=== PATIENT | male | born 1945 | race Caucasian/White ===

== ENCOUNTER 2018-03-18 08:18 | Outpatient (REF) | payer MEDICARE, BC, SELFPAY ==
[2018-03-18 14:26] LABS: ALT 32 U/L (12-78); AST 29 U/L (15-37); Albumin 3.7 g/dL (3.4-5.0); Alkaline Phosphatase 64 U/L (46-116); Anion Gap 4.8 mmol/L (3-11); BUN 12 mg/dL (7-18); Bilirubin, Total 0.6 mg/dL (0.2-1.0); CO2 31.2 mmol/L (21.0-32.0); CREATININE 1.08 mg/dL (0.70-1.30); Calcium 8.6 mg/dL (8.5-10.1); Chloride 103 mmol/L (98-107); Cholesterol 180 mg/dL (50-200); Glucose 109 mg/dL (70-100); HDL Cholesterol 64 mg/dL (40-60); LDL CHOLESTEROL 105 mg/dL (<100); Potassium 4.4 mmol/L (3.5-5.1); Sodium 139 mmol/L (136-145); Total Protein 7.2 g/dL (6.4-8.2); Triglyceride 119 mg/dL (30-150)
== END 2018-03-18 08:38 ==
LOC: NCHCN 08:18
PROVIDERS: Visit Provider Family Medicine
DX: E66.9 Obesity, unspecified (principal); Z13.228 Encounter for screening for other metabolic disorders
CPT/HCPCS: 80053; 80061; 83721

== ENCOUNTER 2018-05-04 12:03 | Emergency (ER) | payer MEDICARE, BC, SELFPAY ==
[2018-05-04 12:05] VITALS: BP 146/70; PULSE 72; RESP 18; TEMP 36.2; O2SAT 97
--- NOTE | 2018-05-04 12:29 | W.ED.GENAD ---
Discharge Plan Disposition Patient Disposition: HOME Condition: Fair Discharge Details Chief Complaint: Orthopedic Clinical Impression: Open finger fracture, Crush injury of hand, Laceration Primary Care Provider: Aimee Kingsley ED Provider: Mago Hilton Home Meds and New Rx's Prescriptions: New cephalexin [Keflex] 500 mg capsule 500 mg PO QID Qty: 20 RF: 0 Continue acetaminophen [Tylenol Extra Strength] 500 MG tablet 1,000 mg PO PRN PRNRF: 0 aspirin [Aspir-81] 81 MG tablet,delayed release (DR/EC) 81 mg PO .QD RF: 0 losartan 25 MG tablet RF: 0 allopurinol 300 MG tablet 300 mg PO .QD RF: 0 metoprolol tartrate 12.5 MG tablet 12.5 mg PO DAILY AM RF: 0 Discharge Instructions Instructions: Laceration (ED), Finger Fracture (ED) Additional Instructions: Encourage rest, ice, elevation. Tylenol and/or ibuprofen as needed for discomfort. Please keep current dressing on for the next 48 hours. After that time, he may cover with a Band-Aid but please apply the foam and metal splint provided to help immobilize the finger. Please call orthopedics today to schedule follow-up appointment. Please take antibiotics as prescribed to help prevent infection. If you develop redness, warmth, drainage, fever/chills, increased pain or other new/worsening symptoms please seek care urgently once again. Referrals: Suleiman Guadalupe MD [ [facility] STAFF PHYSICIAN] - ([phone]) Discharge Data Discharge Date/Time-TO BE ENTERED AT DEPARTURE: 05/04/18 14:31 Medical Decision Making Patient is a 72-year-old [id number] male, accompanied by , with chief complaint of right index finger injury. He reports that prior to arrival he was working on [employer] when he had a crush injury to the distal phalanx of the affected digit. He denies any altered sensation. Denies other injury the incident. On exam, patient has notable ecchymosis over the nail. Has what appears to be a fairly deep laceration approximately 1.5 cm in length and running circumferentially from the base of the nailbed on the radial side around the digit. Minimal bleeding at this time. Two-point discrimination is intact good range of motion area patient I discussed risk/benefits of a digital block. We discussed procedural steps. He voiced understanding and wished to proceed. Once the block is been performed, plan to obtain imaging as I am concerned for a distal phalanx fracture Procedure note: Using standard sterile technique, digital block was performed using 1% lidocaine plain. 5 cc was infiltrated. Patient tolerated this well. Tetanus will be updated today. X-ray notable for comminuted distal phalanx fracture. Discussed these findings with the patient. He will be treated for open fracture and will be placed on antibiotics. Patient discussed closure techniques. In particular, we discussed risk/benefits as well as expected procedural steps. He voiced understanding and wishes to proceed Procedure note: Using standard sterile technique, the wound was copiously irrigated with sterile saline and cleansed with chlorhexidine. Wound was explored to base in a bloodless field. No foreign body or debris was noted. Attention was then turned to closure. #4 simple interrupted sutures were placed using a 5-0 nylon. Patient tolerated procedure well and a bulky, immobilizing dressing was placed over the digit. Patient discussed wound care in depth. Will keep current dressing on for the next 48 hours. Patient be placed on Keflex to prevent infection for his open fracture. He was discharged with a foam metal splint which she will begin wearing once he takes of the current immobilizing dressing. I encouraged elevation to help with swelling. Advised Tylenol and/or ibuprofen as needed for discomfort. He does not feel at this point that he will need anything further for his pain. He was given strict return precautions, in particular we discussed the signs symptoms of infection. He will contact orthopedics and to have follow-up with them within the next few days for reevaluation of his open distal phalanx fracture. All his questions and concerns were addressed and he is in agreement this plan HPI General Mode of arrival: ambulatory. Date/Time Provider Initiated Documentation: 05/04/18 12:16. Limitations to Documentation: no limitations. Information obtained by: patient. History of Present Illness 72 year old M presents to the emergency department with the chief complaint of Right index finger crush injury, described as moderate, with intensity rated at 5. Quality is described as aching, and is localized to the right and upper extremity. Patient reports no radiation. Patient started experiencing this minute(s) and it has been constant. No relieving factors improve symptom(s), Movement worsens symptoms . Patient notes no other symptoms.; denies fever/chills. Patient did receive the following treatments prior to arrival, none Related Data Home Medications Medication Instructions Recorded Confirmed acetaminophen [Tylenol Extra 1,000 mg PO PRN PRN 07/01/14 05/04/18 Strength] allopurinol 300 mg PO .QD 07/01/14 05/04/18 aspirin [Aspir-81] 81 mg PO .QD 07/01/14 05/04/18 losartan 07/01/14 07/01/14 metoprolol tartrate 12.5 mg PO DAILY AM 07/01/14 05/04/18 cephalexin [Keflex] 500 mg PO QID #20 cap 05/04/18 Previous Rx's Medication Instructions Recorded cephalexin [Keflex] 500 mg PO QID #20 cap 05/04/18 Allergies Allergy/AdvReac Type Severity Reaction Status Date / Time grass pollen-perennial rye, Allergy Mild Unverified 05/04/18 12:14 standar lisinopril AdvReac Mild cough Unverified 05/04/18 12:14 General Stated Complaint: Orthopedic FABIANA: 3 Review of Systems Constitutional Reports as per HPI, Denies chills, Denies fever(s) and Denies weakness Cardiovascular Denies chest pain and Denies dyspnea Respiratory Denies cough and Denies dyspnea Musculoskeletal Reports as per HPI, Denies numbness and Denies tingling Integumentary/Breasts Reports as per HPI Neurologic Reports as per HPI, Denies numbness, Denies tingling and Denies weakness [facility] Social History Smoking/Tobacco Use Status: Never Exam Const General: cooperative, healthy appearing, comfortable, no acute distress, well developed and well groomed Nutritional Appearance: well nourished and overweight Orientation: alert and awake Resp Effort & Inspection: normal respiratory effort, able to speak in complete sentences and no respiratory distress Cardio Rate: regular rate Rhythm: regular rhythm Heart Sounds: S1 normal and S2 normal Skin Trauma: laceration (Patient has a deep laceration over the distal phalanx of the right index finger. It seems to be extending from the base of the radial side of the nailbed around to the palmar side of the digit. Wound is actively bleeding) Neuro General: alert and awake Cognition: normal cognition Speech: speech normal Gait: normal gait Motor: muscle tone normal throughout Sensory Exam: no sensory deficits noted and normal double simultaneous stimulation Extrem General: full ROM and normal capillary refill Right upper extremity: full ROM, normal capillary refill, no joint enlargement (Patient swelling of the distal phalanx of the index finger) and hand Details: normal capillary refill, neuromotor exam normal, neuromotor exam abnormal, neurosensory exam normal (2 point intact), tendon exam normal, tenderness, swelling, laceration and ecchymosis (palmar side of the distal phalanx and at the base of the nail bed); abnormal to inspection (Laceration as above) and no foreign bodies; no cyanosis Psych Appearance: grossly normal and well kempt Mental Status: mental status grossly normal Speech and Movement: speech and movement normal Course Vital Signs Temperature 36.2 C L 05/04/18 12:05 Pulse 72 05/04/18 12:05 Respiratory Rate 18 05/04/18 12:05 Blood Pressure 146/70 H 05/04/18 12:05 Pulse Oximetry 97 05/04/18 12:05 Temperature 36.2 C L 05/04/18 12:05 Temperature Source Temporal Artery Scan 05/04/18 12:05 Pulse 72 05/04/18 12:05 Respiratory Rate 18 05/04/18 12:05 Respiratory Effort 05/04/18 12:16 Blood Pressure 146/70 H 05/04/18 12:05 Blood Pressure Position Sitting 05/04/18 12:05 Pulse Oximetry 97 05/04/18 12:05 Oxygen Delivery Method Room Air 05/04/18 12:05 Oxygen Flow Rate 0 05/04/18 12:05 Pain Level 5 05/04/18 12:16
--- NOTE | 2018-05-04 13:10 | DI.RAD_ITS ---
SYMPTOMS/DIAGNOSIS: DISTAL CRUSH INJURY RIGHT INDEX FINGER: Three views. There is a comminuted nondisplaced fracture involving the distal phalanx of the right index finger. The fracture proximally appears to extend into the distal interphalangeal joint. There is soft tissue swelling of the index finger. No radiopaque foreign bodies are seen in the soft tissues. Moderate degenerative changes are seen in the hand and wrist. IMPRESSION: Comminuted intra-articular fracture involving the distal phalanx of the right index finger.
== END 2018-05-04 14:31 | disposition home or self-care (01) ==
PROVIDERS: Emergency Provider Physician Assistant
DX: S67.190A Crushing injury of right index finger, initial encounter (principal); S62.630B Displaced fracture of distal phalanx of right index finger, initial encounter for open fracture; W22.8XXA Striking against or struck by other objects, initial encounter
CPT/HCPCS: 12001; 26750; 90471; 73140

== ENCOUNTER 2018-05-12 11:10 | Outpatient (CLI) | payer MEDICARE, BC, SELFPAY ==
--- NOTE | 2018-05-12 11:13 | DI.RAD_ITS ---
SYMPTOM/DIAGNOSIS: F/U FX RIGHT INDEX FINGER: Three views. Comparison is made with 05/04/18. There is again seen a comminuted fracture of the distal phalanx of the right index finger. There is one half shaft widths anterior displacement of the distal fracture seen on the lateral view. Mild degenerative changes are seen in the interphalangeal joints of the finger. There is soft tissue swelling of the right index finger. IMPRESSION: Comminuted mildly displaced fracture of the distal phalanx of the right index finger.
== END 2018-05-12 11:30 ==
PROVIDERS: Visit Provider Orthopaedic Surgery
DX: S62.630B Displaced fracture of distal phalanx of right index finger, initial encounter for open fracture (principal); S67.190A Crushing injury of right index finger, initial encounter; W23.1XXA Caught, crushed, jammed, or pinched between stationary objects, initial encounter
CPT/HCPCS: 99202; 99214; 73140

== ENCOUNTER 2018-05-20 10:25 | Outpatient (CLI) | payer MEDICARE, BC, SELFPAY ==
--- NOTE | 2018-05-20 10:16 | DI.RAD_ITS ---
SYMPTOMS/DIAGNOSIS: F/U FX RIGHT INDEX FINGER: Three views were obtained and again show comminuted fracture of the distal phalanx of the index finger, no gross interval change in alignment of the fracture fragments in comparison with examination of May 12.
== END 2018-05-20 10:45 ==
PROVIDERS: Visit Provider Orthopaedic Surgery
DX: S67.190D Crushing injury of right index finger, subsequent encounter (principal); S62.630D Displaced fracture of distal phalanx of right index finger, subsequent encounter for fracture with routine healing; W22.8XXD Striking against or struck by other objects, subsequent encounter
CPT/HCPCS: 29130; 99213; 73140; A4570

== ENCOUNTER 2018-06-17 10:59 | Outpatient (CLI) | payer MEDICARE, BC, SELFPAY ==
--- NOTE | 2018-06-17 10:54 | DI.RAD_ITS ---
SYMPTOMS/DIAGNOSIS: F/U FX RIGHT INDEX FINGER: Comparison 05/20/18. There is no change in alignment of the comminuted fracture involving the distal phalanx of the right index finger.
== END 2018-06-17 11:19 ==
PROVIDERS: Visit Provider Orthopaedic Surgery
DX: S62.630D Displaced fracture of distal phalanx of right index finger, subsequent encounter for fracture with routine healing (principal); S67.190D Crushing injury of right index finger, subsequent encounter; W20.8XXD Other cause of strike by thrown, projected or falling object, subsequent encounter
CPT/HCPCS: 99211; 99213; 73140

== ENCOUNTER 2018-12-23 13:47 | Outpatient (CLI) | payer MEDICARE, BC, SELFPAY | END 2018-12-23 14:07 | PROVIDERS: Visit Provider Urology | DX: R39.9 Unspecified symptoms and signs involving the genitourinary system (principal) | CPT/HCPCS: 87086 ==

== ENCOUNTER 2019-03-18 08:56 | Outpatient (REF) | payer MEDICARE, BC, SELFPAY ==
[2019-03-18 11:15] LABS: HGB 15.2 g/dL (13.5-17.5); Mean Corp. HGB Concentration 32.3 g/dL (32.0-36.0); Mean Corpuscular Hemoglobin 31.3 pg (27.0-33.0); Mean Corpuscular Volume 96.7 fL (80-95); Platelet Count 211 x1000/uL (130-400); RBC 4.86 m/cumm (4.50-6.00); RBC Distribution Width 13.6 % (11.8-14.1); White Blood Cell Count 6.91 k/cumm (4.4-10.8)
[2019-03-18 11:25] LABS: ALT 31 U/L (16-63); AST 26 U/L (15-37); Albumin 3.8 g/dL (3.4-5.0); Alkaline Phosphatase 59 U/L (46-116); Anion Gap 8.2 mmol/L (3-11); BUN 13 mg/dL (7-18); Bilirubin, Total 0.8 mg/dL (0.2-1.0); CO2 28.8 mmol/L (21.0-32.0); CREATININE 1.02 mg/dL (0.70-1.30); Calculated LDL 95 mg/dL; Chloride 103 mmol/L (98-107); Cholesterol 176 mg/dL (50-200); Glucose 104 mg/dL (70-100); HDL Cholesterol 64 mg/dL (40-60); Potassium 4.6 mmol/L (3.5-5.1); Sodium 140 mmol/L (136-145); Total Protein 7.1 g/dL (6.4-8.2); Triglyceride 85 mg/dL (30-150)
== END 2019-03-18 09:16 ==
LOC: NCHCN 08:56
PROVIDERS: PCP Family Medicine; Visit Provider Family Medicine
DX: I49.9 Cardiac arrhythmia, unspecified (principal); E66.9 Obesity, unspecified
CPT/HCPCS: 80053; 80061; 85027